=== PATIENT | female | born 1995 | race Caucasian/White ===

== ENCOUNTER 2016-11-24 21:02 | Emergency (ER) | payer OTHER ==
[~2016-11-24] VITALS: Ht 157.5 cm; Wt 56.7 kg
[2016-11-24 21:23] LABS: ABSOLUTE BASOPHIL COUNT 0 /CUMM (0.0-0.2); ABSOLUTE EOSINOPHIL COUNT 0.3 /CUMM (0.0-0.7); ABSOLUTE GRANULOCYTE CT 6.3 /CUMM (1.4-6.5); ABSOLUTE LYMPH COUNT 1.9 /CUMM (1.2-3.4); ABSOLUTE MONOCYTE COUNT 0.5 /CUMM (0.10-0.60); BASOPHIL % 0.3 % (0.0-2.0); EOSINOPHIL % 3.8 % (0-5); GRANULOCYTE % 69.6 % (42.2-75.2); HEMATOCRIT 42.4 % (37-47); MEAN CORPUSCULAR HGB 30.3 PG (27.0-31.0); MEAN CORPUSCULAR VOLUME 89.2 FL (81.0-99.0); MEAN PLATELET VOLUME 9.4 FL (7.4-10.4); PLATELET COUNT 227 /CUMM (130-400); RBC DISTRIBUTION WIDTH 14.1 % (11.5-14.5); RED BLOOD CELL CT 4.75 /CUMM (4.20-5.40); WHITE BLOOD CELL COUNT 9.1 /CUMM (4.8-10.8)
--- NOTE | 2016-11-24 21:33 | ED GI/GU/ABDOMINAL COMPLAINT ---
History of Present Illness General Chief Complaint: Abdominal Pain/Flank Pain Stated Complaint: ABD PAIN, WORSE AFTER EATING Source: patient, family Exam Limitations: no limitations Vital Signs & Intake/Output Vital Signs & Intake/Output Vital Signs Date Time Temp Pulse Resp B/P B/P Pulse O2 O2 Flow FiO2 Mean Ox Delivery Rate 11/24 2245 97.5 83 16 122/69 99 11/24 2107 97.7 92 18 147/60 100 Room Air ED Intake and Output 11/25 0000 11/24 1200 Intake Total 1000 Output Total Balance 1000 Intake, IV 1000 Patient 125 lb Weight Weight Reported by Patient Measurement Method Allergies Coded Allergies: NO KNOWN ALLERGIES (01/04/12) Reconcile Medications Metoclopramide HCl (Reglan) 10 MG TABLET 1 TAB PO Q6-8 PRN nausea Omeprazole 40 MG CAPSULE. 1 CAP PO DAILY abdominal pain Triage Note: PT TO ED FOR ABD PAIN AFTER EATING X 1 DAY. Triage Nurses Notes Reviewed? yes ? N Is pt currently ? No HPI: Patient is a 21-year-old female presents complaining of severe right upper quadrant pain worse after eating. Symptoms onset today. Patient had pizza at approximately 1:15pm then broccoli a short time later and symptoms became severe. Pain is a dull pain earlier today was sharp. Nausea is currently severe. Patient took Zofran with no improvement. LMP was approximately 1 year ago. Patient had surgery for endometriosis and is oral contraceptive pills, has not had her menstrual period since. Denies fevers, chills, vomiting, diarrhea. (ANASTASIA EDMONDSON) Past History Travel History Traveled to [place] past 21 day No Medical History Any Pertinent Medical History? 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 No (ANASTASIA EDMONDSON) Review of Systems Review of Systems Constitutional: Denies: chills, fever. EENTM: Reports: no symptoms. Respiratory: Denies: cough, short of breath. Cardiovascular: Denies: chest pain. GI: Reports: see HPI. Genitourinary: Reports: no symptoms. Musculoskeletal: Reports: back pain. Skin: Reports: no symptoms. Neurological/Psychological: Reports: no symptoms. Hematologic/Endocrine: Reports: no symptoms. Immunologic/Allergic: Reports: no symptoms. (ANASTASIA EDMONDSON) Physical Exam Physical Exam General Appearance: well developed/nourished, alert, awake Head: atraumatic, normal appearance Eyes: Bilateral: normal appearance, PERRL, EOMI. Ears, Nose, Throat, Mouth: hearing grossly normal, moist mucous membrane Neck: normal inspection, supple, full range of motion Respiratory: normal breath sounds, chest non-tender, no respiratory distress, lungs clear Cardiovascular: regular rate/rhythm Gastrointestinal: soft, positive Hall's sign. Positive epigastric tenderness. Negative McBurney's point tenderness Back: normal inspection, normal range of motion Extremities: normal range of motion Neurologic/Psych: no motor/sensory deficits, awake, alert, oriented x 3, normal gait, normal mood/affect Skin: intact, normal color, warm/dry Core Measures ACS in differential dx? No Severe Sepsis Present: No Septic Shock Present: No (ANASTASIA EDMONDSON) Progress Differential Diagnosis: appendicitis, biliary colic, cholecystitis, diverticulitis, ectopic , gastritis, hepatitis, hernia, ischemic bowel, inflamm bowel dis, ovarian cyst, ovarian torsion, pancreatitis, PUD/GERD, SBO, UTI/pyelo Plan of Care: Orders Procedure Date/time Status URINALYSIS 11/25 2139 Complete LIPASE 11/24 2110 Complete HUMAN BETA HCG SCREEN 11/24 2110 Complete COMPREHENSIVE METABOLIC PANEL 11/24 2110 Complete CBC WITHOUT DIFFERENTIAL 11/24 2110 Complete AMYLASE 11/24 2110 Complete Laboratory Tests 11/24/162201: Urine Color STRAW, Urine Clarity CLEAR, Urine pH 6.0, Ur Specific [place] 1.020, Urine Protein NEG, Urine Ketones NEG, Urine Nitrite NEG, Urine Bilirubin NEG, Urine Urobilinogen 0.2, Ur Leukocyte Esterase NEG, Ur Microscopic SEDIMENT EXAMINED, Urine RBC RARE, Ur Epithelial Cells FEW, Urine Bacteria RARE H, Urine Hemoglobin SMALL H, Urine Glucose NEG 11/24/162110: Anion Gap 12, Estimated GFR > 60, BUN/Creatinine Ratio 15.0, Glucose 97, Calcium 9.3, Total Bilirubin 0.7, AST 21, ALT 39, Alkaline Phosphatase 36, Total Protein 6.8, Albumin 4.1, Globulin 2.7, Albumin/Globulin Ratio 1.5, Amylase 59, Lipase 110, Total Beta HCG NEGATIVE, CBC w Diff NO MAN DIFF REQ, RBC 4.75, MCV 89.2, MCH 30.3, RDW 14.1, MPV 9.4, Gran % 69.6, Lymphocytes % 20.7, Monocytes % 5.6, Eosinophils % 3.8, Basophils % 0.3, Absolute Granulocytes 6.3, Absolute Lymphocytes 1.9, Absolute Monocytes 0.5, Absolute Eosinophils 0.3, Absolute Basophils 0, PUBS MCHC 34.0 2310: Results of labs and imaging discussed with patient and her mother. Patient has seen a ocean lifeguard previously, Dr. Luther. Patient afebrile , nontoxic appearing, feels improved after Reglan and Toradol. Appears stable for discharge and follow-up with her primary care provider and her ocean lifeguard. (KEITH JOINER,ANASTASIA) Diagnostic Imaging: Viewed by Me: CT Scan. Discussed w/RAD: CT Scan. Radiology Impression: PATIENT: ZURI BARRIOS PRESENT AGE: 21 PATIENT ACCOUNT NO: [id number] : 93 LOCATION: [facility] ORDERING PHYSICIAN: ANASTASIA JOINER SERVICE DATE: 11/24/16 EXAM TYPE: CAT - CT ABD & PELVIS W IV CONTRAST EXAMINATION: CT ABDOMEN AND PELVIS WITH CONTRAST CLINICAL INFORMATION: Right upper quadrant abdominal pain COMPARISON: None TECHNIQUE: Multidetector volumetric imaging was performed of the abdomen and pelvis before and after the IV administration of 94 mL of Optiray 320 intravenous contrast. Sagittal and coronal reformatted images were obtained on the technologist's workstation. DLP: 268.51 mGy-cm FINDINGS: LUNG BASES: The visualized lung bases are unremarkable. LIVER, GALLBLADDER, AND BILIARY TREE: The liver is normal in size, shape, and attenuation. No focal hepatic lesion or biliary ductal dilatation is present. The gallbladder is partially distended with no evidence of radiopaque gallstones, gallbladder wall thickening, or obvious pericholecystic inflammatory changes. PANCREAS: Unremarkable. SPLEEN: Unremarkable. ADRENAL GLANDS: Unremarkable. KIDNEYS AND URETERS: The kidneys are normal in size, shape, and attenuation. No hydronephrosis, hydroureter, or calculi seen. No perinephric stranding. BLADDER: Unremarkable. GASTROINTESTINAL TRACT: The stomach, duodenum comment small and large bowel are unremarkable. The appendix is unremarkable, axial image 57/91 from series 2 and coronal image 29/79. ABDOMINAL WALL: No significant hernia is appreciated. LYMPH NODES: Normal. VASCULAR: Unremarkable. PELVIC VISCERA: The uterus and adnexa are unremarkable. OSSEOUS STRUCTURES: Unremarkable. IMPRESSION : No acute intra-abdominal findings. No CT evidence of acute appendicitis, acute cholecystitis or urinary stone. DICTATED BY: NEEL WHITE MD DATE/TIME DICTATED:11/24/162239 PATIENT ACCESS ASSOCIATE:DANNA DATE/TIME TRANSCRIBED:2239 CONFIDENTIAL, DO NOT COPY WITHOUT APPROPRIATE AUTHORIZATION. < Electronically signed in Other Vendor System> SIGNED BY: NEEL WHITE MD 11/24/162251 Initial ED EKG: none (ANASTASIA EDMONDSON) Departure Departure Time of Disposition: 2305 Disposition: HOME OR SELF CARE Condition: Stable Clinical Impression Primary Impression: Abdominal pain Qualifiers: Abdominal location: upper abdomen, unspecified Qualified Code: R10.10 - Upper abdominal pain, unspecified Referrals: ELOISA QIU,HANH Reyes (PCP/Family) CARMINA LUTHER MD Additional Instructions: Follow up with Dr. Luther and with Hanh Hopson for further evaluation. Call in the morning for appointment. Return to the ER if unable to stay hydrated, fevers, or worsening of symptoms. Departure Forms: Customer Survey General Discharge Information Prescriptions: Current Visit Scripts Metoclopramide HCl (Reglan) 1 TAB PO Q6-8 PRN nausea #12 TAB Omeprazole 1 CAP PO DAILY #14 CAP (ANASTASIA EDMONDSON) PA/THERAPIST PHYS Co-Sign Statement Statement: ED Attending supervision documentation- [] I saw and evaluated the patient. I have also reviewed all the pertinent lab results and diagnostic results. I agree with the findings and the plan of care as documented in the PA's/THERAPIST PHYS's documentation. [x] I have reviewed the ED Record and agree with the PA's/THERAPIST PHYS's documentation. [] Additions or exceptions (if any) to the PAs/THERAPIST PHYS's note and plan are summarized below: [] (JOSE WARD,EPHRAIM Neal)
[2016-11-24 22:45] VITALS: BP 122/69
--- NOTE | 2016-11-24 22:52 | CT SCAN REPORT ---
EXAMINATION: CT ABDOMEN AND PELVIS WITH CONTRAST CLINICAL INFORMATION: Right upper quadrant abdominal pain COMPARISON: None TECHNIQUE: Multidetector volumetric imaging was performed of the abdomen and pelvis before and after the IV administration of 94 mL of Optiray 320 intravenous contrast. Sagittal and coronal reformatted images were obtained on the technologist's workstation. DLP: 268.51 mGy-cm FINDINGS: LUNG BASES: The visualized lung bases are unremarkable. LIVER, GALLBLADDER, AND BILIARY TREE: The liver is normal in size, shape, and attenuation. No focal hepatic lesion or biliary ductal dilatation is present. The gallbladder is partially distended with no evidence of radiopaque gallstones, gallbladder wall thickening, or obvious pericholecystic inflammatory changes. PANCREAS: Unremarkable. SPLEEN: Unremarkable. ADRENAL GLANDS: Unremarkable. KIDNEYS AND URETERS: The kidneys are normal in size, shape, and attenuation. No hydronephrosis, hydroureter, or calculi seen. No perinephric stranding. BLADDER: Unremarkable. GASTROINTESTINAL TRACT: The stomach, duodenum comment small and large bowel are unremarkable. The appendix is unremarkable, axial image 57/91 from series 2 and coronal image 29/79. ABDOMINAL WALL: No significant hernia is appreciated. LYMPH NODES: Normal. VASCULAR: Unremarkable. PELVIC VISCERA: The uterus and adnexa are unremarkable. OSSEOUS STRUCTURES: Unremarkable. IMPRESSION: No acute intra-abdominal findings. No CT evidence of acute appendicitis, acute cholecystitis or urinary stone.
[2016-11-24] MEDS ORDERED: REGLAN10 M1 PO (23:09)
[2016-11-24] MEDS ORDERED: OMEPRAZOLE40 M1 PO (23:09)
== END 2016-11-24 23:24 ==
LOC: ERH 21:02
PROVIDERS: Pediatrics
DX: R10.13 Epigastric pain (principal)
CPT/HCPCS: 74177; 81001; 96374; 96375; J1885; J2765